=== PATIENT | female | born 1995 | race Caucasian/White ===

== ENCOUNTER 2016-10-03 13:02 | Outpatient (CLI) | payer MEDICAID ==
[~2016-10-03] VITALS: Ht 160 cm; Wt 70.8 kg
[~2016-10-03 13:02] MED LIST: ACET500C5 PO
[2016-10-03 13:23] VITALS: Ht 160 cm; Wt 70.8 kg
[2016-10-03 13:24] VITALS: BP 112/71; PULSE 77; RESP 16
[2016-10-03 14:19] LABS: ADD SCAN DIFF NO
[2016-10-03 14:21] LABS: BASOPHILS % 0.3 % (0.0-2.0); EOSINOPHILS # 0.2 10^3/ul (0.0-0.5); EOSINOPHILS % 2.2 % (0.0-7.0); HEMATOCRIT 37.3 % (37.0-47.0); HEMOGLOBIN 12.9 g/dl (12.0-16.0); LYMPHOCYTES # 1.8 10^3/ul (0.8-2.9); LYMPHOCYTES % 18.3 % (15.0-51.0); MEAN CORPUSCULAR HEMOGLOBIN 31.5 pg (29.0-33.0); MEAN CORPUSCULAR HGB CONC 34.6 g/dl (32.0-37.0); MEAN CORPUSCULAR VOLUME 91.2 fl (82.0-101.0); MEAN PLATELET VOLUME 9.4 fl (7.4-10.4); MONOCYTE # 0.9 10^3/ul (0.3-0.9); MONOCYTES % 8.7 % (0.0-11.0); NEUTROPHIL # 6.9 10^3/ul (1.6-7.5); NEUTROPHILS % 69.8 % (39.0-77.0); PLATELET COUNT 289 10^3/UL (140-415); RED BLOOD COUNT 4.09 10^6/ul (4.20-5.40); RED CELL DISTRIBUTION WIDTH 12.7 % (11.5-14.5); WHITE BLOOD COUNT 9.9 10^3/ul (4.8-10.8)
--- NOTE | 2016-10-03 14:29 | RADRPT ---
PROCEDURE: US evaluation of amniotic fluid volume. CLINICAL INDICATION: Leaking amniotic fluid. TECHNIQUE: Multiple sonographic images of the gravid uterus were obtained utilizing guillory-scale layo ging. Sagittal and transverse images were obtained. The images were reviewed on a PACS workstation . DULCE was measured. COMPARISON: No prior studies are available for comparison. FINDINGS: There is a single live intrauterine . heart rate is 143 beats per minute. Position is cephalic. Placenta is posterior fundal grade II with no abruption or previa. DULCE is 12.9 cm. (Normal = 5-20 cm.) IMPRESSION: 1. DULCE is 12.9 cm. RPTAT: QQ .Derek Cox MD, MD Date Time Electronically viewed and signed by .Derek Cox MD, on 10/03/2016 14:29 .R/
[2016-10-03 14:30] LABS: ADD UMIC NO; URINE BILIRUBIN (Dip) NEGATIVE (NEGATIVE); URINE BLOOD (Dip) NEGATIVE (NEGATIVE); URINE COLOR LT. YELLOW (YELLOW); URINE GLUCOSE (Dip) NEGATIVE (NEGATIVE); URINE KETONES (Dip) NEGATIVE (NEGATIVE); URINE LEUKOCYTE ESTERASE (Dip) NEGATIVE (NEGATIVE); URINE NITRITE (Dip) NEGATIVE (NEGATIVE); URINE TOTAL PROTEIN (Dip) NEGATIVE (NEGATIVE); URINE UROBILINOGEN (Dip) 0.2 E.U./dL (0.1-1.0)
--- NOTE | 2016-10-03 16:37 | HP ---
Date/Time of Note Date/Time of Note DATE: 10/03/16 TIME: 16:32 OB - History Hx of Present Free Text/Dictation OB Triage Pt is a 21yo G1 at 37+3 presenting for evaluation of leaking of fluid x4 days. Pt reports normal FM, denies VB or UCs. PROCEDURE: US evaluation of amniotic fluid volume. CLINICAL INDICATION: Leaking amniotic fluid. TECHNIQUE: Multiple sonographic images of the gravid uterus were obtained utilizing guillory-scale imaging. Sagittal and transverse images were obtained. The images were reviewed on a PACS workstation. DULCE was measured. COMPARISON: No prior studies are available for comparison. FINDINGS: There is a single live intrauterine . heart rate is 143 beats per minute. Position is cephalic. Placenta is posterior fundal grade II with no abruption or previa. DULCE is 12.9 cm. (Normal = 5-20 cm.) IMPRESSION: 1. DULCE is 12.9 cm. Estimated Due Date: Oct 21, 2016 : 1 Care: Good Care Obstetrical Complications: None Medical Complications: None OB Admission Exam Vital Signs Vital Signs Vital Signs Date Time Temp Pulse Resp B/P Pulse Ox O2 Delivery O2 Flow Rate FiO2 10/03/16 13:24 98.0 77 16 112/71 Physical Exam Cervical Dilatation: None Effacement: 0% Station: -3 Membranes: Intact (neg nitrazine and ROM plus) Heart Rate: 120's Accelerations: Accelerations Present Decelerations: No Decelerations Varibility: Moderate Contractions on Admission: None Last 72 hours Lab Results CBC & BMP 10/03/16 14:15 OB Assessment/Plan Other Assessment: No e/o PROM Reactive NST Other plan: Pt appropriate for d/c home. Possible pt leaking urine vs small amniotic fluid leak not captured today. Advised pt to return for continued leaking, decreased FM, UCs or vaginal bleeding. Otherwise, pt will f/up as an outpatient with Dr. Combs on 10/09/16 as scheduled. Questions answered to patient's satisfaction. TOMÁS EDWARDS MD Oct 03, 2016 16:37
== END 2016-10-03 16:10 | disposition home or self-care (01) ==
LOC: OBT 13:02 → L-D 13:05 → OBT 16:10
PROVIDERS: ATTEND Obstetrics & Gynecology
DX: O42.92 Full-term premature rupture of membranes, unspecified as to length of time between rupture and onset of labor (principal); Z3A.37 37 weeks gestation of pregnancy
CPT/HCPCS: 36415; 76815; 81003; 84112; 85025; Z7500; G0463

== ENCOUNTER 2016-10-15 00:38 | Inpatient (IN) | payer MEDICAID ==
[~2016-10-15] VITALS: Ht 165.1 cm; Wt 72.2 kg
[2016-10-15] VITALS (7 sets, daily range): BP systolic 113–128; BP diastolic 57–73; PULSE 62–93; RESP 16–18; Ht 165.1 cm; Wt 72.2 kg
[2016-10-15] MEDS ORDERED: PREN1TAB62 PO (01:02)
[2016-10-15] MEDS ORDERED: LACTATED RINGER'S 1,000 ML IV PRN (01:16)
[2016-10-15] MEDS: LACTATED RINGER'S 1,000 ML IV SCH ×4 (01:26→09:49)
[2016-10-15] MEDS ORDERED: MISOPROSTOL 200 MCG TAB PR PRN ×2 (01:30→16:30)
[2016-10-15] MEDS ORDERED: OXYTOCIN 30 UNITS/LR 500 ML IV PRN ×2 (01:30→16:30)
[2016-10-15] MEDS ORDERED: OXYTOCIN 30 UNITS/LR 500 ML IV SCH ×2 (01:30)
[2016-10-15] MEDS ORDERED: CARBOPROST 250 MCG INJ IM PRN ×2 (01:30→16:30)
[2016-10-15] MEDS ORDERED: LIDOCAINE 1% (MPF) 30 ML INJ INJ PRN (01:30)
[2016-10-15] MEDS ORDERED: BUTORPHANOL 2 MG INJ IV PRN (01:30)
[2016-10-15] MEDS ORDERED: IBUPROFEN 600 MG TAB PO PRN (01:30)
[2016-10-15] MEDS ORDERED: METHYLERGONOVINE 0.2 MG INJ IM PRN ×2 (01:30→16:30)
[2016-10-15] MEDS ORDERED: ACETAMINOPHEN/CODEINE #3 TAB PO PRN (01:30)
[2016-10-15 01:48] LABS: ADD SCAN DIFF NO
[2016-10-15 01:51] LABS: BASOPHILS % 0.2 % (0.0-2.0); EOSINOPHILS # 0.3 10^3/ul (0.0-0.5); EOSINOPHILS % 2.2 % (0.0-7.0); HEMATOCRIT 36.2 % (37.0-47.0); HEMOGLOBIN 12.4 g/dl (12.0-16.0); LYMPHOCYTES # 2.3 10^3/ul (0.8-2.9); LYMPHOCYTES % 17.4 % (15.0-51.0); MEAN CORPUSCULAR HEMOGLOBIN 31.1 pg (29.0-33.0); MEAN CORPUSCULAR HGB CONC 34.3 g/dl (32.0-37.0); MEAN CORPUSCULAR VOLUME 90.7 fl (82.0-101.0); MEAN PLATELET VOLUME 9.5 fl (7.4-10.4); MONOCYTES % 7.8 % (0.0-11.0); NEUTROPHIL # 9.4 10^3/ul (1.6-7.5); NEUTROPHILS % 71.4 % (39.0-77.0); PLATELET COUNT 295 10^3/UL (140-415); RED BLOOD COUNT 3.99 10^6/ul (4.20-5.40); RED CELL DISTRIBUTION WIDTH 12.6 % (11.5-14.5); WHITE BLOOD COUNT 13.2 10^3/ul (4.8-10.8)
[2016-10-15 02:00] LABS: INR 0.93; PROTIME 12.5 Sec (12.2-14.2)
[2016-10-15 02:01] LABS: PARTIAL THROMBOPLASTIN TIME 25.5 Sec (25.0-35.0)
[2016-10-15] MEDS: BUTORPHANOL 2 MG INJ IV PRN ×2 (02:09→04:37)
[2016-10-15] MEDS ORDERED: FENTAnyl 2MCG/ML-ROPIV 0.2% 100 ML BAG EPI SCH (07:30)
[2016-10-15] MEDS ORDERED: NALOXONE (0.4 MG/ML) INJ IV PRN (07:30)
[2016-10-15] MEDS ORDERED: ONDANSETRON 4 MG INJ IV PRN (07:30)
[2016-10-15] MEDS ORDERED: DIPHENHYDRAMINE 50 MG INJ IV PRN (07:30)
--- NOTE | 2016-10-15 14:46 | HP ---
Date/Time of Note Date/Time of Note DATE: 10/15/16 TIME: 14:44 OB - History Hx of Present Chief Complaint: contractions Estimated Due Date: Oct 21, 2016 : 1 Para: 0 Spontaneous : 0 Therapeutic : 0 Care: Good Care Ultrasounds: Normal mid trimester US Obstetrical Complications: None Medical Complications: None Past Family/Social History * Past Medical, Surgical, Family and Obstetric Histories reviewed from chart. GBS Status: Negative OB Admission Exam Vital Signs Vital Signs Vital Signs Date Time Temp Pulse Resp B/P Pulse Ox O2 Delivery O2 Flow Rate FiO2 10/15/16 00:58 98.4 74 18 117/71 Physical Exam HEENT: WNL Heart: Rhythm Normal Lungs: Clear Abdomen: WNL Extremities: Normal Cervical Dilatation: 5cm Effacement: 100% Station: -1 Membranes: Intact Heart Rate: 140's Accelerations: Accelerations Present Decelerations: No Decelerations Varibility: Moderate Last 72 hours Lab Results CBC & BMP 10/15/16 01:26 OB Assessment/Plan Reason for admission: active labor Plan: Expectant Management YOLI LARSON MD Oct 15, 2016 14:46
--- NOTE | 2016-10-15 14:48 | LDN ---
Date/Time of Note Date/Time of Note DATE: 10/15/16 TIME: 14:46 Delivery Summary Weeks of Gestation 39 weeks and 1 day Placenta Delivered: Spontaneously Meconium: none Episiotomy: No Perineal laceration: 1 Laceration repair: First degree laceration repaired with 3-0 Vicryl Anesthesia type: Epidural Estimated blood loss: 300 Sponge & Needle done & correct: Yes All needle counts correct: Yes Any foreign bodies felt in the: No Problems: Delivery Information Sex Infant Sex: male Apgars 1 Minute: 8 5 Minute: 9 Suctioning Nose & mouth suctioned at elmo: Yes Delee suction performed: No Umbilical Cord Umbilical cord with: 3 Vessels Cord presentations: nuchal cord Nuchal cord present X: 1 Cord Blood was obtained: Yes Mother & Baby Disposition Disposition Mom & Baby to Maternity; Good: Yes YOLI LARSON MD Oct 15, 2016 14:48
[2016-10-15] MEDS ORDERED: LACTATED RINGER'S 1,000 ML IV* SCH (16:04)
[2016-10-15] MEDS ORDERED: DIBUCAINE 1% 30 GM OINT PR PRN (16:30)
[2016-10-15] MEDS ORDERED: ACETAMINOPHEN 325 MG TAB PO PRN (16:30)
[2016-10-15] MEDS: WITCH HAZEL/GLYCERIN PAD PR PRN (17:36)
[2016-10-15] MEDS: IBUPROFEN 600 MG TAB PO SCH (17:36)
[2016-10-15] MEDS: BENZOCAINE 20% 56 ML SPRAY TOP PRN (17:37)
[2016-10-15] MEDS: SENNA/DOCUSATE NA (8.6MG/50MG) TAB PO SCH (20:29)
[2016-10-16] VITALS: BP 115/70; PULSE 84; RESP 17
[2016-10-16] MEDS: IBUPROFEN 600 MG TAB PO SCH ×5 (00:49→23:59)
[2016-10-16] MEDS: ACETAMINOPHEN/CODEINE #3 TAB PO PRN ×2 (02:57→16:56)
[2016-10-16 04:00] VITALS: BP 104/73; PULSE 104; RESP 18
[2016-10-16 07:50] VITALS: BP 98/57; PULSE 85; RESP 18
[2016-10-16 08:44] LABS: ADD SCAN DIFF NO
[2016-10-16 08:48] LABS: BASOPHILS % 0.2 % (0.0-2.0); EOSINOPHILS # 0.2 10^3/ul (0.0-0.5); EOSINOPHILS % 1.3 % (0.0-7.0); HEMATOCRIT 30.6 % (37.0-47.0); HEMOGLOBIN 10.4 g/dl (12.0-16.0); LYMPHOCYTES # 2.4 10^3/ul (0.8-2.9); LYMPHOCYTES % 14.3 % (15.0-51.0); MEAN CORPUSCULAR HEMOGLOBIN 31.5 pg (29.0-33.0); MEAN CORPUSCULAR VOLUME 92.7 fl (82.0-101.0); MEAN PLATELET VOLUME 9.5 fl (7.4-10.4); MONOCYTE # 1.1 10^3/ul (0.3-0.9); MONOCYTES % 6.3 % (0.0-11.0); NEUTROPHIL # 13.2 10^3/ul (1.6-7.5); NEUTROPHILS % 77.3 % (39.0-77.0); PLATELET COUNT 237 10^3/UL (140-415); WHITE BLOOD COUNT 17.1 10^3/ul (4.8-10.8)
[2016-10-16] MEDS ORDERED: INFLUENZA VIRUS VACCINE 0.5 ML (DISPENSING) IM* ONE (09:00)
[2016-10-16] MEDS: SENNA/DOCUSATE NA (8.6MG/50MG) TAB PO SCH ×2 (09:33→21:14)
[2016-10-16 12:15] VITALS: BP 113/61; PULSE 87; RESP 20
[2016-10-16 16:30] VITALS: BP 111/71; PULSE 80; RESP 20
[2016-10-16] MEDS: WITCH HAZEL/GLYCERIN PAD PR PRN (17:57)
[2016-10-16 20:00] VITALS: BP 110/74; PULSE 88; RESP 18
[2016-10-17 04:00] VITALS: BP 115/65; PULSE 101; RESP 18
[2016-10-17] MEDS: IBUPROFEN 600 MG TAB PO SCH ×3 (06:28→18:02)
[2016-10-17 08:00] VITALS: BP 113/65; PULSE 84; RESP 19
[2016-10-17] MEDS ORDERED: DIPHTH/TET/ACEL PERTUSS (ADULT) 0.5 ML VIAL IM* ONE (09:00)
[2016-10-17] MEDS: SENNA/DOCUSATE NA (8.6MG/50MG) TAB PO SCH ×2 (09:21→21:00)
[2016-10-17 10:13] LABS: ADD SCAN DIFF NO
[2016-10-17 10:18] LABS: BASOPHIL # 0.1 10^3/ul (0.0-0.1); BASOPHILS % 0.3 % (0.0-2.0); EOSINOPHILS # 0.7 10^3/ul (0.0-0.5); EOSINOPHILS % 3.9 % (0.0-7.0); HEMATOCRIT 33.4 % (37.0-47.0); HEMOGLOBIN 11.1 g/dl (12.0-16.0); LYMPHOCYTES # 1.6 10^3/ul (0.8-2.9); LYMPHOCYTES % 8.5 % (15.0-51.0); MEAN CORPUSCULAR HEMOGLOBIN 31.4 pg (29.0-33.0); MEAN CORPUSCULAR HGB CONC 33.2 g/dl (32.0-37.0); MEAN CORPUSCULAR VOLUME 94.6 fl (82.0-101.0); MEAN PLATELET VOLUME 9.7 fl (7.4-10.4); MONOCYTE # 0.9 10^3/ul (0.3-0.9); MONOCYTES % 4.9 % (0.0-11.0); NEUTROPHIL # 15.3 10^3/ul (1.6-7.5); NEUTROPHILS % 81.8 % (39.0-77.0); PLATELET COUNT 252 10^3/UL (140-415); RED BLOOD COUNT 3.53 10^6/ul (4.20-5.40); RED CELL DISTRIBUTION WIDTH 12.9 % (11.5-14.5); WHITE BLOOD COUNT 18.7 10^3/ul (4.8-10.8)
[2016-10-17 13:25] VITALS: BP 150/84; PULSE 84; RESP 21
[2016-10-17 16:00] VITALS: BP 120/59; PULSE 97; RESP 20
--- NOTE | 2016-10-17 19:18 | QN ---
Documentation Comment No complaint Afebrile VSS Fundus Firm Lochia scant Stable Start Keflex Repeat CBC in AM. YOLI LARSON MD Oct 17, 2016 19:18
[2016-10-17 19:45] VITALS: BP 122/74; PULSE 86; RESP 18
[2016-10-17] MEDS: CEPHALEXIN 500 MG CAP PO SCH (19:56)
[2016-10-18] MEDS: IBUPROFEN 600 MG TAB PO SCH ×4 (00:31→18:08)
[2016-10-18] MEDS: CEPHALEXIN 500 MG CAP PO SCH ×4 (00:31→18:08)
[2016-10-18] MEDS: WITCH HAZEL/GLYCERIN PAD PR PRN (00:32)
[2016-10-18 04:00] VITALS: BP 118/58; PULSE 87; RESP 18
[2016-10-18 08:20] VITALS: BP 116/58; PULSE 81; RESP 20
[2016-10-18] MEDS: SENNA/DOCUSATE NA (8.6MG/50MG) TAB PO SCH (09:14)
[2016-10-18 10:11] LABS: ADD SCAN DIFF NO
[2016-10-18 10:15] LABS: BASOPHILS % 0.2 % (0.0-2.0); EOSINOPHILS # 0.8 10^3/ul (0.0-0.5); EOSINOPHILS % 4.8 % (0.0-7.0); HEMATOCRIT 31.3 % (37.0-47.0); HEMOGLOBIN 10.6 g/dl (12.0-16.0); LYMPHOCYTES # 1.7 10^3/ul (0.8-2.9); LYMPHOCYTES % 10.3 % (15.0-51.0); MEAN CORPUSCULAR HEMOGLOBIN 31.5 pg (29.0-33.0); MEAN CORPUSCULAR HGB CONC 33.9 g/dl (32.0-37.0); MEAN CORPUSCULAR VOLUME 93.2 fl (82.0-101.0); MEAN PLATELET VOLUME 9.5 fl (7.4-10.4); MONOCYTE # 0.9 10^3/ul (0.3-0.9); MONOCYTES % 5.7 % (0.0-11.0); NEUTROPHIL # 12.7 10^3/ul (1.6-7.5); NEUTROPHILS % 78.3 % (39.0-77.0); PLATELET COUNT 224 10^3/UL (140-415); RED BLOOD COUNT 3.36 10^6/ul (4.20-5.40); RED CELL DISTRIBUTION WIDTH 12.6 % (11.5-14.5); WHITE BLOOD COUNT 16.2 10^3/ul (4.8-10.8)
[2016-10-18] MEDS: BENZOCAINE 20% 56 ML SPRAY TOP PRN (10:31)
--- NOTE | 2016-10-18 18:31 | DS ---
Date/Time of Note Date/Time of Note DATE: 10/18/16 TIME: 18:30 Obstetrical Discharge Record Final Diagnosis Final Diagnosis: Term delivered Vaginal Delivery Obstetrical Delivery: Spontaneous, Laceration, Repaired Condition on Discharge Physical Assessment Voiding: Yes Bowel Movement: Yes Breast: Soft, non-tender Fundus: Firm Calf Tenderness: No Patient Condition: Stable YOLI LARSON MD Oct 18, 2016 18:31
== END 2016-10-18 19:01 | disposition home or self-care (01) | DRG 775 ==
LOC: OBT 00:38 → L-D 00:39 → OBT 01:07 → L-D 01:07 → PP1 16:03
PROVIDERS: ADMIT Obstetrics & Gynecology; ATTEND Obstetrics & Gynecology
PROC: 10E0XZZ Delivery of Products of Conception, External Approach (ICD-10-PCS; principal; 2016-10-15)
PROC: 0HQ9XZZ Repair Perineum Skin, External Approach (ICD-10-PCS; 2016-10-15)
DX: O70.0 First degree perineal laceration during delivery (principal); O69.81X0 Labor and delivery complicated by cord around neck, without compression, not applicable or unspecified; Z3A.39 39 weeks gestation of pregnancy; Z37.0 Single live birth
CPT/HCPCS: 36415; 62319; 85025; 85610; 85730; 86592; 86900; 86901; 87086; 87340; 90686; 90715; 96360; G0463; J2590; J3010; J7120